=== PATIENT | female | born 1935 | race Caucasian/White ===

== ENCOUNTER 2016-03-05 08:09 | Day surgery (SDC) | END 2016-03-05 08:10 | disposition home or self-care (01) | CPT/HCPCS: 66984; A9270; V2632 ==

== ENCOUNTER 2017-05-26 08:00 | Outpatient (CLI) | payer MEDICARE ==
[2017-05-26 12:26] LABS: BASOPHILS # (AUTO) 0.1 10^3/uL (0.0-0.1); EOSINOPHILS # (AUTO) 0.2 10^3/uL (0.0-0.7); EOSINOPHILS % (AUTO) 2.9 %; HGB - HEMOGLOBIN 14.2 g/dL (12.0-16.0); LYMPHOCYTES # (AUTO) 1.6 10^3/uL (1.5-3.5); LYMPHOCYTES % (AUTO) 26.2 %; MEAN CORPUSCULAR HEMOGLOBIN 30.9 pg (27.0-31.0); MEAN CORPUSCULAR HGB CONC 34.3 g/dL (32.0-36.0); MEAN CORPUSCULAR VOLUME 90.3 fL (81.0-99.0); MEAN PLATELET VOLUME 9.9 fL (7.9-10.8); MONOCYTES # (AUTO) 0.4 10^3/uL (0.0-1.0); NEUTROPHILS # (AUTO) 3.9 10^3/uL (1.5-6.6); NEUTROPHILS % (AUTO) 62.9 %; PLT - PLATELET COUNT 166 10^3/uL (130-450); RED CELL DISTRIBUTION WIDTH 13.5 % (12.0-15.0); TROPONIN I < 0.04 ng/mL (<0.49); WHITE BLOOD COUNT 6.3 x10^3/uL (4.8-10.8)
[2017-05-26 12:28] LABS: CREATINE KINASE MB 1.8 ng/mL (0.6-6.3)
[2017-05-26 12:41] LABS: ALBUMIN/GLOBULIN RATIO 1.5 (1.0-2.2); ALKALINE PHOSPHATASE 58 IU/L (42-121); ALT ALANINE AMINOTRANSFERASE 15 IU/L (10-60); AST ASPARTATE AMINOTRANSFERASE 20 IU/L (10-42); BILIRUBIN,TOTAL 0.8 mg/dL (0.2-1.0); BUN - BLOOD UREA NITROGEN 20 mg/dL (6-20); CALCIUM 9.1 mg/dL (8.5-10.3); CARBON DIOXIDE - CO2 26 mmol/L (21-32); CHLORIDE 107 mmol/L (101-111); CHOL/HDL RATIO 6.1 (<4.4); CHOLESTEROL 262 mg/dL; CREATININE 0.8 mg/dL (0.4-1.0); GFR - MDRD 69 (>89); GLUCOSE 80 mg/dL (70-100); HDL CHOLESTEROL 43 mg/dL; LDL CHOLESTEROL,CALCULATED 190 mg/dL; LDL/HDL RATIO 4.4 (<4.4); SODIUM 138 mmol/L (135-145); TOTAL PROTEIN 6.7 g/dL (6.7-8.2); VLDL CHOLESTEROL 29 mg/dL
== END 2017-05-26 08:01 | disposition home or self-care (01) ==
LOC: LAB.WCP 08:00
PROVIDERS: ATTEND Family Medicine
DX: R07.89 Other chest pain (principal)
CPT/HCPCS: 36415; 80053; 80061; 82553; 83721; 84443; 84484; 85025; 85379

== ENCOUNTER 2017-08-11 16:46 | Emergency (ER) | payer MEDICARE ==
--- NOTE | 2017-08-11 19:18 | ED Physician Documentation ---
PD HPI CHEST PAIN - Stated complaint Stated Complaint: HIGH BP/LT SIDE SHOULDER/ARM PX - Chief complaint Chief Complaint: Cardiac - History obtained from History obtained from: Patient, Family - History of Present Illness Timing - onset: Other (This is a ying 82-year-old woman with long-standing hypertension. She was on metoprolol 50 mg twice a day and on lisinopril 10 mg a day. Lisinopril was making her dizzy so it was stopped. She saw her physician a few days ago and losartan was added, 50 mg a day. For the last many months, as long as she remembers she has had constant, non-intermittent very mild left-sided chest pressure and some headaches. None of this is new or debilitating. She took her blood pressure today and it was in the range of 200/ 90 so she presents for treatment mainly for the elevated blood pressure readings.) Review of Systems Constitutional: denies: Fever, Chills Cardiac: denies: Palpitations, Pedal edema, Calf pain Respiratory: denies: Dyspnea, Cough GI: denies: Abdominal Pain, Nausea, Vomiting PD PAST MEDICAL HISTORY - Past Medical History Cardiovascular: Hypertension, High cholesterol, Other Respiratory: Other GI: None : None HEENT: None Psych: Depression Musculoskeletal: Osteoporosis, Chronic back pain Derm: None - Past Surgical History Past Surgical History: Yes General: Other Ortho: Hip replacement, 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 - Present Medications Home Medications: Ambulatory Orders Medication Instructions Recorded Confirmed Lisinopril 1 tab PO DAILY 03/21/15 03/05/16 Metoprolol Tartrate 1 tab PO BID 03/21/15 03/05/16 Aspirin [Lo-Dose Aspirin EC] 81 mg PO DAILY 03/05/16 03/05/16 Cholecalciferol (Vitamin D3) 400 units PO DAILY 03/05/16 03/05/16 [Vitamin D3] - Allergies Allergies/Adverse Reactions: Allergies Allergy/AdvReac Type Severity Reaction Status Date / Time No Known Drug Allergies Allergy Verified 03/21/15 10:21 - Social History Does the pt smoke?: Yes Smoking Status: Current every day smoker Does the pt drink ETOH?: No Does the pt have substance abuse?: No - Immunizations Immunizations are current?: Yes PD ED PE NORMAL - Vitals Vital signs reviewed: Yes - General General: Alert and oriented X 3, No acute distress - HEENT HEENT: PERRL, EOMI - Neck Neck: Supple, no meningeal sign, No bony TTP - Cardiac Cardiac: RRR, No murmur - Respiratory Respiratory: No respiratory distress, Clear bilaterally - Abdomen Abdomen: Normal bowel sounds, Soft, Non tender - Back Back: No CVA TTP, No spinal TTP - Extremities Extremities: No edema, No calf tenderness / cord - Neuro Neuro: Alert and oriented X 3, Normal speech Results - Vitals Vitals: Vital Signs - 24 hr 08/11/17 08/11/17 17:08 19:01 Temperature 37.0 C Heart Rate 73 Respiratory 16 Rate Blood Pressure 200/89 H Blood Pressure 200/79 H [Right] O2 Saturation 99 Oxygen O2 Source Room air - EKG (time done) 1719 Rate: Rate (enter#) (71) Rhythm: NSR [place]: Normal Intervals: Normal [place] QRS: Normal Ischemia: Normal ST segments Computer interpretation: Agree with computer - Labs Labs: Laboratory Tests 08/11/17 08/11/17 08/11/17 19:26 19:26 19:26 WBC 4.2 L RBC 4.65 Hgb 14.5 Hct 43.1 MCV 92.5 MCH 31.2 H MCHC 33.7 RDW 13.7 Plt Count 145 MPV 9.0 Neut # (Auto) 2.6 Lymph # (Auto) 1.0 L [place] # (Auto) 0.4 Eos # (Auto) 0.1 Baso # (Auto) 0.0 Absolute Nucleated RBC 0.00 Nucleated RBC % 0.0 Sodium 136 Potassium 3.3 L Chloride 105 Carbon Dioxide 24 Anion Gap 7.0 BUN 17 Creatinine 0.8 Estimated GFR (MDRD) 69 L Glucose 129 H Calcium 9.1 Total Bilirubin 0.9 AST 23 ALT 14 Alkaline Phosphatase 72 Troponin I < 0.04 Total Protein 7.1 Albumin 4.1 Globulin 3.0 Albumin/Globulin Ratio 1.4 Lipase 38 PD MEDICAL DECISION MAKING - ED course ED course: 82-year-old woman with hypertension, uncontrolled on her current regimen. We will increase her losartan to double the amount she is on now. She has long- standing chest pain which is not acute. It has been going on "forever" without change and constantly so I do not think further workup at this juncture is necessary. - Sepsis Event Vital Signs: Vital Signs - 24 hr 08/11/17 08/11/17 17:08 19:01 Temperature 37.0 C Heart Rate 73 Respiratory 16 Rate Blood Pressure 200/89 H Blood Pressure 200/79 H [Right] O2 Saturation 99 Oxygen O2 Source Room air Departure - Departure Disposition: 01 Home, Self Care Clinical Impression: Hypertension Qualifiers: Hypertension type: essential hypertension Qualified Code(s): I10 - Essential ( primary) hypertension Condition: Good Record reviewed to determine appropriate education?: Yes Instructions: Blood Pressure Dc Comments: Increase the losartan, the little green pill, to 50 mg twice a day and follow up with Dr. Bueno within the next few days.
[2017-08-11 19:33] LABS: EOSINOPHILS # (AUTO) 0.1 10^3/uL (0.0-0.7); EOSINOPHILS % (AUTO) 1.3 %; HGB - HEMOGLOBIN 14.5 g/dL (12.0-16.0); LYMPHOCYTES % (AUTO) 25.1 %; MEAN CORPUSCULAR HEMOGLOBIN 31.2 pg (27.0-31.0); MEAN CORPUSCULAR HGB CONC 33.7 g/dL (32.0-36.0); MEAN CORPUSCULAR VOLUME 92.5 fL (81.0-99.0); MONOCYTES # (AUTO) 0.4 10^3/uL (0.0-1.0); MONOCYTES % (AUTO) 9.8 %; NEUTROPHILS # (AUTO) 2.6 10^3/uL (1.5-6.6); NEUTROPHILS % (AUTO) 62.8 %; PLT - PLATELET COUNT 145 10^3/uL (130-450); RED BLOOD COUNT 4.65 10^6/uL (4.20-5.40); RED CELL DISTRIBUTION WIDTH 13.7 % (12.0-15.0); WHITE BLOOD COUNT 4.2 x10^3/uL (4.8-10.8)
[2017-08-11 19:45] LABS: ALBUMIN 4.1 g/dL (3.2-5.5); ALBUMIN/GLOBULIN RATIO 1.4 (1.0-2.2); BILIRUBIN,TOTAL 0.9 mg/dL (0.2-1.0); CALCIUM 9.1 mg/dL (8.5-10.3); CREATININE 0.8 mg/dL (0.4-1.0); TOTAL PROTEIN 7.1 g/dL (6.7-8.2)
[2017-08-11 20:26] VITALS: BP 176/98
== END 2017-08-11 20:27 | disposition home or self-care (01) ==
LOC: ED 16:46
DX: I10 Essential (primary) hypertension (principal); E78.00 Pure hypercholesterolemia, unspecified; M81.0 Age-related osteoporosis without current pathological fracture; Z79.82 Long term (current) use of aspirin; F17.200 Nicotine dependence, unspecified, uncomplicated
CPT/HCPCS: 36415; 80053; 83690; 84484; 85025; 93005; 99283

== ENCOUNTER 2017-12-10 08:00 | Outpatient (CLI) | payer MEDICARE ==
[2017-12-10 14:49] LABS: BASOPHILS % (AUTO) 0.8 %; BILIRUBIN,URINE NEGATIVE (NEGATIVE); EOSINOPHILS # (AUTO) 0.1 10^3/uL (0.0-0.7); EOSINOPHILS % (AUTO) 2.5 %; GLUCOSE, URINE (UA) NEGATIVE (NEGATIVE); HGB - HEMOGLOBIN 14.8 g/dL (12.0-16.0); KETONES,URINE (UA) NEGATIVE (NEGATIVE); LEUKOCYTE ESTERASE, URINE NEGATIVE (NEGATIVE); LYMPHOCYTES # (AUTO) 1.8 10^3/uL (1.5-3.5); LYMPHOCYTES % (AUTO) 31.5 %; MEAN CORPUSCULAR HEMOGLOBIN 31.5 pg (27.0-31.0); MEAN CORPUSCULAR HGB CONC 34.7 g/dL (32.0-36.0); MEAN CORPUSCULAR VOLUME 90.7 fL (81.0-99.0); MEAN PLATELET VOLUME 10.3 fL (7.9-10.8); MONOCYTES # (AUTO) 0.5 10^3/uL (0.0-1.0); MONOCYTES % (AUTO) 8.2 %; NEUTROPHILS # (AUTO) 3.2 10^3/uL (1.5-6.6); NITRITE,URINE NEGATIVE (NEGATIVE); OCCULT BLOOD,URINE NEGATIVE (NEGATIVE); PLT - PLATELET COUNT 178 10^3/uL (130-450); PROTEIN,URINE NEGATIVE (NEGATIVE); RED BLOOD COUNT 4.71 10^6/uL (4.20-5.40); RED CELL DISTRIBUTION WIDTH 13.9 % (12.0-15.0); UROBILINOGEN,URINE 0.2 (NORMAL) E.U./dL (NORMAL); WHITE BLOOD COUNT 5.7 x10^3/uL (4.8-10.8)
[2017-12-10 15:38] LABS: BACTERIA,URINE None Seen /HPF (None Seen); CLARITY,URINE CLEAR (CLEAR); RBC,URINE None Seen /HPF (0-5); SQUAMOUS EPITHELIAL CELL,UR NONE SEEN (<= Few)
[2017-12-10 16:00] LABS: ALBUMIN 4.3 g/dL (3.2-5.5); ALBUMIN/GLOBULIN RATIO 1.5 (1.0-2.2); ALKALINE PHOSPHATASE 71 IU/L (42-121); ALT ALANINE AMINOTRANSFERASE 18 IU/L (10-60); AST ASPARTATE AMINOTRANSFERASE 23 IU/L (10-42); BILIRUBIN,TOTAL 0.7 mg/dL (0.2-1.0); BUN - BLOOD UREA NITROGEN 16 mg/dL (6-20); CALCIUM 9.6 mg/dL (8.5-10.3); CARBON DIOXIDE - CO2 28 mmol/L (21-32); CHLORIDE 106 mmol/L (101-111); CHOL/HDL RATIO 6.4 (<4.4); CHOLESTEROL 302 mg/dL; CREATININE 0.8 mg/dL (0.4-1.0); GFR - MDRD 69 (>89); GLUCOSE 85 mg/dL (70-100); HDL CHOLESTEROL 47 mg/dL; LDL CHOLESTEROL,CALCULATED 211 mg/dL; LDL/HDL RATIO 4.5 (<4.4); SODIUM 140 mmol/L (135-145); TOTAL PROTEIN 7.1 g/dL (6.7-8.2); VLDL CHOLESTEROL 44 mg/dL
[2017-12-10 16:19] LABS: HB2 TOTAL 15.8 g/dL; HEMOGLOBIN A1C 0.52 g/dL; HEMOGLOBIN A1C % 5.2 % (4.6-6.2)
== END 2017-12-10 08:01 | disposition home or self-care (01) ==
LOC: LAB.WCP 08:00
PROVIDERS: ATTEND Family Medicine
DX: I10 Essential (primary) hypertension (principal); E78.5 Hyperlipidemia, unspecified; R31.9 Hematuria, unspecified; R73.01 Impaired fasting glucose
CPT/HCPCS: 36415; 80053; 80061; 81001; 83036; 83721; 84443; 85025

== ENCOUNTER 2018-05-04 09:22 | Outpatient (CLI) | payer MEDICARE ==
[2018-05-04 13:40] LABS: CALCIUM 9.9 mg/dL (8.5-10.3); CREATININE 1.1 mg/dL (0.4-1.0)
== END 2018-05-04 23:59 | disposition home or self-care (01) ==
LOC: LAB.WCP 09:22
PROVIDERS: ATTEND Family Medicine
DX: I10 Essential (primary) hypertension (principal)
CPT/HCPCS: 36415; 80048

== ENCOUNTER 2018-07-28 07:39 | Day surgery (SDC) | payer MEDICARE ==
[~2018-07-28 07:39] MED LIST: BRIMONIDINE 0.2% OPHTH DROPS 5 ML ONE; BSS/LIDOCAINE/EPINEPHRINE 1 ML SYRINGE ONE; CYCLOPENTOLATE 1% OPHTH DROPS 2 ML ONE; KETOROLAC 0.45% OPHTH DROPS ONE; PHENYLEPHRINE 2.5% OPHTH 2 ML DROPS ONE; PROPARACAINE 0.5% OPHTH DROPS 15 ML ONE; TIMOLOL 0.5% OPHTH DROPS ONE; TRIAMCIN/MOXIFLOX OPHTHALMIC 0.6 ML VIAL IO ONE; VANCOMYCIN OPHTHALMI 8MG/0.8ML 8 MG/0.8 ML SYRINGE IO ONE
[2018-07-28] MEDS ORDERED: LACTATED RINGERS 500 ML IV ONE (07:58)
[2018-07-28] MEDS ORDERED: PROPARACAINE 0.5% OPHTH DROPS 15 ML LEFTEYE ONE ×2 (08:05→09:11)
[2018-07-28] MEDS ORDERED: CYCLOPENTOLATE 1% OPHTH DROPS 2 ML LEFTEYE ONE (08:05)
[2018-07-28] MEDS ORDERED: KETOROLAC 0.45% OPHTH DROPS LEFTEYE ONE (08:05)
[2018-07-28] MEDS ORDERED: PHENYLEPHRINE 2.5% OPHTH 2 ML DROPS LEFTEYE ONE (08:05)
--- NOTE | 2018-07-28 08:37 | ANESTHESIA ---
Pre-Anesthesia VS, & Labs - Diagnosis left senile combined cataract - Procedure left cataract extraction with intraocular lens Vital Signs: Temp Pulse Resp BP Pulse Ox 36.7 C 61 18 149/81 H 97 07/28/18 08:06 07/28/18 08:06 07/28/18 08:06 07/28/18 08:06 07/28/18 08:06 Height 5 ft 4 in Weight (kg) 56 kg Body Mass Index 20.5 - NPO >8 hours - Is Patient ?: Not Applicable Home Medications and Allergies Lisinopril 1 tab PO DAILY 03/21/15 Metoprolol Tartrate 1 tab PO BID 03/21/15 Aspirin [Lo-Dose Aspirin EC] 81 mg PO DAILY 03/05/16 Cholecalciferol (Vitamin D3) [Vitamin D3] 400 units PO DAILY 03/05/16 Allergies/Adverse Reactions: Allergies Allergy/AdvReac Type Severity Reaction Status Date / Time No Known Drug Allergies Allergy Verified 03/21/15 10:21 Anes History & Medical History - Anesthetic History Anesthesia Complications: reports: No previous complications - Medical History Cardiovascular: reports: Hypertension, High cholesterol, Other Pulmonary: reports: Other Gastrointestinal: reports: None Urinary: reports: None Musculoskeletal: reports: Osteoporosis, Chronic back pain Skin: reports: None Smoking Status: Current every day smoker - Surgical History General: Other Gynecologic: Hysterectomy Orthopedic: Hip replacement, Other Exam General: Alert Dental: WNL Mouth Opening: Greater than 4 Fingerbreadths Mallampati classification: I Thyromental Distance: greater than 6 cm Respiratory: Lungs clear Cardiovascular: Regular rate, Normal S1, Normal S2 Mental/Cognitive Status: Alert/Oriented X3 Plan Anesthesia Type: MAC Consent for Procedure(s) Verified and Reviewed: Yes Code Status: Attempt Resuscitation ASA classification: 2-Mild systemic disease Is this case an emergency?: No
[2018-07-28] MEDS ORDERED: EPINEPHrine 1 MG/ML AMP IVP ONE (09:09)
[2018-07-28] MEDS ORDERED: BRIMONIDINE 0.2% OPHTH DROPS 5 ML OPTH ONE (09:09)
[2018-07-28] MEDS ORDERED: TIMOLOL 0.5% OPHTH DROPS OPTH ONE (09:09)
[2018-07-28] MEDS ORDERED: MIDAZOLAM 2 MG/2 ML VIAL IVP ONE (09:09)
[2018-07-28] MEDS ORDERED: fentaNYL 100 MCG/2 ML VIAL IVP ONE (09:09)
[2018-07-28] MEDS ORDERED: CHONDR SULF/HYALURONATE SYRINGE IO ONE (09:09)
[2018-07-28] MEDS ORDERED: TRIAMCIN/MOXIFLOX OPHTHALMIC 0.6 ML VIAL IO ONE (09:11)
[2018-07-28] MEDS ORDERED: BSS/LIDOCAINE/EPINEPHRINE 1 ML SYRINGE IO ONE (09:11)
[2018-07-28] MEDS ORDERED: VANCOMYCIN OPHTHALMI 8MG/0.8ML 8 MG/0.8 ML SYRINGE IO ONE (09:11)
[2018-07-28 09:41] VITALS: BP 119/67
--- NOTE | 2018-07-28 10:13 | OPERATIVE REPORT ---
DATE OF SERVICE: 07/28/2018 Physician: Gallo Martino MD PREOPERATIVE DIAGNOSIS: Visually significant cataract, left eye. Cataract surgery was performed on the right eye on 03/05/2016. POSTOPERATIVE DIAGNOSIS: Visually significant cataract, left eye. Cataract surgery was performed on the right eye on 03/05/2016. PROCEDURE: Phacoemulsification with posterior chamber intraocular lens implant, left eye. SURGEON: Gallo Martino MD ANESTHESIA: Monitored anesthesia care. COMPLICATIONS: None. OPERATIVE INDICATIONS: This is an 83-year-old woman with progressive vision loss in the left eye due to 2+ nuclear sclerotic and vacuole cataract. Best corrected visual acuity was 20/60 with glare to 20/630. Indications for surgery were difficulty driving in low light or night, difficulty driving at night because headlights from other vehicles, and difficulty with glare or bright lights in any situation. She was consented at length concerning risks and benefits of cataract surgery, after which she expressed a desire to proceed with surgery. OPERATIVE PROCEDURE: Patient was taken to OR #3 and placed under monitored anesthesia care. A surgical timeout was conducted confirming correct patient, correct procedure, and correct surgical site. She was given topical anesthesia, and then prepped and draped in the usual sterile fashion. The eye was entered at the 6 and 3 o'clock positions. Intracameral Shugarcaine was injected into the anterior chamber, followed by Viscoat. A continuous-tear curvilinear capsulorrhexis was performed. The nucleus was hydrodissected and phacoemulsified. The cortex was evacuated using automated infusion and aspiration. Provisc was injected into the capsular bag, and a 20.0 diopter intraocular lens inserted in the bag. Approximately 0.9 mL of a mixture of triamcinolone, moxifloxacin, and vancomycin was injected subconjunctivally in the superior quadrant for infection and inflammation prophylaxis. I and A was used to evacuate the viscoelastic material. The eye was inflated to physiologic pressure using balanced salt solution and found to be watertight. Patient was taken from the operating room in good condition and given postoperative instructions. TD: 07/28/2018 09:32 [facility]
== END 2018-07-28 07:40 | disposition home or self-care (01) ==
LOC: SDS 07:39
PROVIDERS: ATTEND Ophthalmology
PROC: 08RK3JZ Replacement of Left Lens with Synthetic Substitute, Percutaneous Approach (ICD-10-PCS; principal; 2018-07-28 09:00)
DX: H25.812 Combined forms of age-related cataract, left eye (principal); H35.3130 Nonexudative age-related macular degeneration, bilateral, stage unspecified; I10 Essential (primary) hypertension; F17.210 Nicotine dependence, cigarettes, uncomplicated
CPT/HCPCS: 66984; A9270; J3490; V2632

== ENCOUNTER 2018-12-09 11:09 | Emergency (ER) | payer MEDICARE ==
--- NOTE | 2018-12-09 11:56 | XRAY Report ---
Reason: chest pain, soa Procedure Date: 12/09/2018 Accession Number: [id number] / [id number] Procedure: XR - Chest 1 View X-Ray CPT Code: 09283 FULL RESULT: EXAM: CHEST RADIOGRAPHY EXAM DATE: 12/09/2018 11:26 AM. CLINICAL HISTORY: Chest pain, shortness of breath. COMPARISON: CHEST 2 VIEW PA/LAT 08/16/2017 9:10 AM CHEST 2 VIEW PA/LAT 05/26/2017 8:29 AM. TECHNIQUE: 1 view. FINDINGS: Lungs/Pleura: No focal opacities evident. No pleural effusion. No pneumothorax. Lungs appear mildly hyperexpanded, similar to prior Mediastinum: Within exam limitations, the cardiomediastinal contour is normal. There is moderate atherosclerotic calcification of the aortic arch. Other: No acute osseous abnormality. There is an old healed right lateral rib fracture deformity, as seen on prior exams. IMPRESSION: 1. No acute cardiopulmonary abnormality. 2. Lungs appear hyperexpanded, similar to the prior exam, raising the possibility of COPD/emphysema. RADIA
--- NOTE | 2018-12-09 12:30 | ED Physician Documentation ---
History of Present Illness - Stated complaint Stated Complaint: cp - Chief complaint Chief Complaint: Cardiac - History obtained from History obtained from: Patient, Family - History of Present Illness Pain level max: 3 Pain level now: 0 - Additonal information Additional information: 83-year-old female presents to the emergency department stating that she developed chest pain on walking. She states that she will feel the chest pain began when she walks from her home to her mailbox. She has to stop and take a break. This is been steadily worsening over the past 3 months. She states that it radiates to the left arm. No history of cardiac disease other than she states she had "fibrillation in the past". She states that she has not had this recur since she started taking a baby aspirin daily. Has not seen a roughener before. She does not believe that she has had a cardiac stress test in the past. She states that it does not occur at rest. She does have a history of smoking, but stopped 20 to 30 years ago. Does not use nebulizers. Brought in by family today. Worse with exertion, better with rest Review of Systems Ten Systems: 10 systems reviewed and negative Constitutional: denies: Fever, Chills Ears: denies: Ear pain Nose: denies: Rhinorrhea / runny nose, Congestion Throat: denies: Sore throat Cardiac: reports: Chest pain / pressure. denies: Palpitations, Pedal edema Respiratory: reports: Dyspnea (occasional). 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 - Present Medications Home Medications: Ambulatory Orders Medication Instructions Recorded Confirmed Lisinopril 0.5 tab PO PRN PRN 03/21/15 12/09/18 Metoprolol Tartrate 100 mg PO BID 03/21/15 12/09/18 Aspirin [Lo-Dose Aspirin EC] 81 mg PO DAILY 03/05/16 12/09/18 Cholecalciferol (Vitamin D3) 400 units PO DAILY 03/05/16 12/09/18 [Vitamin D3] Losartan [Cozaar] 100 mg PO BID 12/09/18 12/09/18 Ubidecarenone [Co Q-10] 100 mg PO DAILY 12/09/18 12/09/18 Vit A/Vit C/Vit E/Zinc/Copper 2 cap PO DAILY 12/09/18 12/09/18 [Preservision Areds Softgel] - Allergies Allergies/Adverse Reactions: Allergies Allergy/AdvReac Type Severity Reaction Status Date / Time amoxicillin Allergy Unknown Verified 12/09/18 11:18 - Social History Does the pt smoke?: Yes Smoking Status: Current every day smoker Does the pt drink ETOH?: No Does the pt have substance abuse?: No - Immunizations Immunizations are current?: Yes PD ED PE NORMAL - Vitals Vital signs reviewed: Yes - General General: Alert and oriented X 3, No acute distress, Well developed/nourished - HEENT HEENT: PERRL, Moist mucous membranes - Neck Neck: Supple, no meningeal sign - Cardiac Cardiac: RRR, Strong equal pulses - Respiratory Respiratory: No respiratory distress, Other (Mild wheeze bilaterally) - Abdomen Abdomen: Soft, Non tender, Non distended - Derm Derm: Warm and dry - Extremities Extremities: No edema, No calf tenderness / cord - Neuro Neuro: Alert and oriented X 3 - Psych Psych: Normal mood, Normal affect Results - Vitals Vitals: Vital Signs - 24 hr 12/09/18 12/09/18 12/09/18 11:10 11:57 12:58 Temperature 36.7 C Heart Rate 61 57 L 54 L Respiratory 18 16 18 Rate Blood Pressure 191/104 H 170/76 H O2 Saturation 95 99 12/09/18 12/09/18 13:17 14:54 Temperature Heart Rate 78 67 Respiratory 18 17 Rate Blood Pressure 158/96 H 150/68 H O2 Saturation 99 99 Oxygen O2 Source Room air - EKG (time done) 1116 Rate: Rate (enter#) (61) Rhythm: NSR [place]: Normal Intervals: Normal [place] QRS: Normal Ischemia: Normal ST segments - Labs Labs: Laboratory Tests 12/09/18 12/09/18 12/09/18 11:57 11:57 11:57 WBC 6.4 RBC 4.49 Hgb 13.8 Hct 42.8 MCV 95.3 MCH 30.7 MCHC 32.2 RDW 13.0 Plt Count 196 MPV 11.9 H Neut # (Auto) 4.0 Lymph # (Auto) 1.6 [place] # (Auto) 0.5 Eos # (Auto) 0.2 Baso # (Auto) 0.1 Absolute Nucleated RBC 0.00 Nucleated RBC % 0.0 Sodium 141 Potassium 4.2 Chloride 106 Carbon Dioxide 25 Anion Gap 10.0 BUN 22 H Creatinine 0.8 Estimated GFR (MDRD) 68 L Glucose 90 Calcium 9.5 Total Bilirubin 0.6 AST 23 ALT 18 Alkaline Phosphatase 61 Troponin I High Sens 16.6 H* Total Protein 6.8 Albumin 4.0 Globulin 2.8 Albumin/Globulin Ratio 1.4 Lipase 52 H - Rads (name of study) cxr Radiology: Prelim report reviewed, EMP read contemporaneously, See rad report (No acute cardiopulmonary abnormality. 2. Lungs appear hyperexpanded, similar to the prior exam, raising the possibility of COPD/emphysema. ) PD MEDICAL DECISION MAKING - ED course Complexity details: reviewed results, re-evaluated patient, considered differential, d/w patient, d/w family, d/w toy consultant ED course: 83-year-old female presents to the emergency department what sounds like accelerating angina. She was also given a nebulizer treatment as her chest x- ray raises the question of COPD/emphysema. She was given aspirin here as well. Discussed the case with Dr. Baez, [facility] cardiology in [place], who graciously accepts in transfer at 1340. Patient was started on a heparin drip. She is pain-free. We will transfer her for further care.COBRA forms completed This document was made in part using voice recognition software. While efforts are made to proofread this document, sound alike and grammatical errors may occur. Departure - Departure Disposition: 02 Transfer Acute Care Hosp Clinical Impression: Angina pectoris Condition: Stable
[2018-12-09] MEDS ORDERED: ASPIRIN CHEW 81 MG TABLET PO STA (12:41)
[2018-12-09] MEDS ORDERED: ALBUTEROL NEB 2.5 MG/3 ML INH STA (12:41)
[2018-12-09 12:46] LABS: BASOPHILS # (AUTO) 0.1 10^3/uL (0.0-0.1); BASOPHILS % (AUTO) 1.1 %; EOSINOPHILS # (AUTO) 0.2 10^3/uL (0.0-0.7); EOSINOPHILS % (AUTO) 2.4 %; HGB - HEMOGLOBIN 13.8 g/dL (12.0-16.0); LYMPHOCYTES # (AUTO) 1.6 10^3/uL (1.5-3.5); LYMPHOCYTES % (AUTO) 25.5 %; MEAN CORPUSCULAR HEMOGLOBIN 30.7 pg (27.0-31.0); MEAN CORPUSCULAR HGB CONC 32.2 g/dL (32.0-36.0); MEAN CORPUSCULAR VOLUME 95.3 fL (81.0-99.0); MEAN PLATELET VOLUME 11.9 fL (7.9-10.8); MONOCYTES # (AUTO) 0.5 10^3/uL (0.0-1.0); MONOCYTES % (AUTO) 8.2 %; NEUTROPHILS % (AUTO) 62.3 %; PLT - PLATELET COUNT 196 10^3/uL (130-450); RED BLOOD COUNT 4.49 10^6/uL (4.20-5.40); WHITE BLOOD COUNT 6.4 x10^3/uL (4.8-10.8)
[2018-12-09 12:49] LABS: ALBUMIN/GLOBULIN RATIO 1.4 (1.0-2.2); BILIRUBIN,TOTAL 0.6 mg/dL (0.2-1.0); CALCIUM 9.5 mg/dL (8.5-10.3); CREATININE 0.8 mg/dL (0.4-1.0); TOTAL PROTEIN 6.8 g/dL (6.7-8.2)
[2018-12-09] MEDS ORDERED: HEPARIN 25000UNITS/500ML (D5W) 25,000 UNIT/500 ML BAG IV STA (13:41)
[2018-12-09] MEDS ORDERED: HEPARIN 5,000 UNIT/ML VIAL IVP STA (13:41)
[2018-12-09 16:17] VITALS: BP 141/87
== END 2018-12-09 16:24 | disposition short-term general hospital (02) ==
LOC: ED 11:09
DX: I20.9 Angina pectoris, unspecified (principal); I10 Essential (primary) hypertension; R06.09 Other forms of dyspnea; Z87.891 Personal history of nicotine dependence; Z79.82 Long term (current) use of aspirin
CPT/HCPCS: 36415; 71045; 80053; 83690; 84484; 85025; 93005; 94640; 99284; 99285; A9270

== ENCOUNTER 2019-06-16 09:31 | Outpatient (CLI) | payer MEDICARE ==
--- NOTE | 2019-06-17 13:39 | Ultrasound Report ---
Reason: PERIPHERAL ARTERY DISEASE Procedure Date: 06/16/2019 Accession Number: [id number] / [id number] Procedure: US - Duplex Lwr Ext Arterial Bilat CPT Code: Final Report FULL RESULT: EXAM: BILATERAL LOWER EXTREMITY ARTERIAL DOPPLER ULTRASOUND EXAM DATE: 06/16/2019 11:30 AM. CLINICAL HISTORY: Peripheral artery disease. History of hypertension, on medication. Remote smoking, quit 35 years ago. History of coronary arterial stent. Right greater than left lower extremity claudication per patient for multiple months. COMPARISON: None. TECHNIQUE: Real-time sonographic vascular imaging was performed by the senior product consultant, utilizing color-flow, Doppler flow, and spectral analysis. Multiple sales representative door to door static images were saved for review. FINDINGS: Right Lower Extremity: ACCOUNT GROUP SUPERVISOR: PSV 93.7 cm/sec. Triphasic waveform. Prox SFA: PSV 82.0 cm/sec. Biphasic waveform. Mid SFA: PSV 82.6 cm/sec. Triphasic waveform. Dist SFA: PSV 55.5 cm/sec. Biphasic waveform. PFA: PSV 33.6 cm/sec. Biphasic waveform. Popliteal: PSV 49.8 cm/sec. Biphasic waveform. ABBI: PSV 54.0 cm/sec. Biphasic waveform. GARDEN MACHINERY MECHANIC: PSV 39.6 cm/sec. Biphasic waveform. Peroneal: Not seen. Dorsalis: PSV 68.3 cm/sec. Biphasic waveform. Left Lower Extremity: ACCOUNT GROUP SUPERVISOR: PSV 61.5 cm/sec. Triphasic waveform. Prox SFA: PSV 75.2 cm/sec. Biphasic waveform. Mid SFA: PSV 67.2 cm/sec. Biphasic Waveform. Dist SFA: PSV 53.0 cm/sec. Biphasic waveform. PFA: PSV 47.0 cm/sec. Biphasic waveform. Popliteal: PSV 31.6 cm/sec. Biphasic waveform. ABBI: PSV 54.3 cm/sec. Biphasic waveform. GARDEN MACHINERY MECHANIC: PSV 35.6 cm/sec. Monophasic waveform. Peroneal: PSV 49.4 cm/sec. Biphasic waveform. Dorsalis: PSV 49.4 cm/sec. Biphasic waveform. Right peroneal artery was not identified. IMPRESSION: 1. No hemodynamically significant stenosis or convincing occlusion within right or left lower extremity arteries. RADIA
== END 2019-06-16 09:32 | disposition home or self-care (01) ==
LOC: DI 09:31
PROVIDERS: ATTEND Family Medicine
DX: I73.9 Peripheral vascular disease, unspecified (principal)
CPT/HCPCS: 93925

== ENCOUNTER 2020-12-17 08:55 | Outpatient (CLI) | payer MEDICARE ==
[2020-12-17 13:29] LABS: BASOPHILS # (AUTO) 0.1 10^3/uL (0.0-0.1); BASOPHILS % (AUTO) 1.1 %; EOSINOPHILS # (AUTO) 0.2 10^3/uL (0.0-0.7); EOSINOPHILS % (AUTO) 3.1 %; HCT - HEMATOCRIT 47.2 % (37.0-47.0); HGB - HEMOGLOBIN 14.8 g/dL (12.0-16.0); LYMPHOCYTES # (AUTO) 1.6 10^3/uL (1.5-3.5); LYMPHOCYTES % (AUTO) 29.5 %; MEAN CORPUSCULAR HEMOGLOBIN 30.5 pg (27.0-31.0); MEAN CORPUSCULAR HGB CONC 31.4 g/dL (32.0-36.0); MEAN CORPUSCULAR VOLUME 97.1 fL (81.0-99.0); MEAN PLATELET VOLUME 11.6 fL (7.9-10.8); MONOCYTES # (AUTO) 0.5 10^3/uL (0.0-1.0); MONOCYTES % (AUTO) 8.5 %; NEUTROPHILS # (AUTO) 3.2 10^3/uL (1.5-6.6); NEUTROPHILS % (AUTO) 57.4 %; PLT - PLATELET COUNT 196 10^3/uL (130-450); RED BLOOD COUNT 4.86 10^6/uL (4.20-5.40); RED CELL DISTRIBUTION WIDTH 13.3 % (12.0-15.0); WHITE BLOOD COUNT 5.5 x10^3/uL (4.8-10.8)
[2020-12-17 13:48] LABS: ALBUMIN 4.2 g/dL (3.2-5.5); ALBUMIN/GLOBULIN RATIO 1.4 (1.0-2.2); BILIRUBIN,TOTAL 0.7 mg/dL (0.2-1.0); CALCIUM 9.6 mg/dL (8.5-10.3); CREATININE 0.8 mg/dL (0.4-1.0); POTASSIUM 4.2 mmol/L (3.5-5.0); TOTAL PROTEIN 7.1 g/dL (6.7-8.2)
[2020-12-17 14:05] LABS: THYROID STIMULATING HORMONE 3.68 uIU/mL (0.34-5.60)
[2020-12-17 14:06] LABS: FREE T3 2.67 pg/mL (2.5-3.9)
[2020-12-17 14:07] LABS: FREE T4 (FREE THYROXINE) 0.88 ng/dL (0.58-1.64)
== END 2020-12-17 08:56 | disposition home or self-care (01) ==
LOC: LAB.N 08:55
PROVIDERS: ATTEND Family Medicine
DX: R06.09 Other forms of dyspnea (principal); I25.10 Atherosclerotic heart disease of native coronary artery without angina pectoris
CPT/HCPCS: 36415; 80053; 83880; 84439; 84443; 84481; 85025

== ENCOUNTER 2020-12-17 09:00 | Outpatient (CLI) | payer MEDICARE ==
--- NOTE | 2020-12-17 10:36 | XRAY Report ---
PROCEDURE: Chest 2 View X-Ray INDICATIONS: EXERTIONAL DYSPNEA TECHNIQUE: 2 view(s) of the chest. COMPARISON: August 16, 2017. FINDINGS: SUPPORT DEVICES: None. LUNG/PLEURA: Biapical pleural thickening/scarring with coarsened interstitial markings. No focal cons olidation or pulmonary edema. No pleural effusion or space-occupying pneumothorax. MEDIASTINUM: The cardiomediastinal silhouette is within normal limits. Calcified atheromatous change of the aorta. BONES/SOFT TISSUES: No acute abnormality. Redemonstrated remote right rib fractures. IMPRESSION: 1.No acute cardiopulmonary abnormality. Reviewed by: Bennett Mcwilliams MD on 12/17/2020 10:34 AM PDT Approved by: Bennett Mcwilliams MD on 12/17/2020 10:34 AM PDT Station ID: [id number]
== END 2020-12-17 09:01 | disposition home or self-care (01) ==
LOC: DI.N 09:00
PROVIDERS: ATTEND Family Medicine
DX: R06.09 Other forms of dyspnea (principal); I25.10 Atherosclerotic heart disease of native coronary artery without angina pectoris
CPT/HCPCS: 36415; 80053; 83880; 84439; 84443; 84481; 85025

== ENCOUNTER 2020-12-19 09:07 | Outpatient (CLI) | payer MEDICARE | END 2020-12-19 09:08 | disposition home or self-care (01) | LOC: RT 09:07 | PROVIDERS: ATTEND Family Medicine | DX: R06.09 Other forms of dyspnea (principal); I25.10 Atherosclerotic heart disease of native coronary artery without angina pectoris | CPT/HCPCS: 94010 ==

== ENCOUNTER 2020-12-26 10:22 | Outpatient (CLI) | payer MEDICARE ==
--- NOTE | 2020-12-26 13:31 | CARDIAC PROCEDURE NOTE ---
Stress Test Report Service Date: 12/26/20 Service Time: 11:00 Ordering Provider: Popeye Franco MD Indication for Test: Assess for ischemic contribution to exertional dyspnea and chest discomfort in a patient with multiple stents 2 years ago. Significant Medical History: -Sharon underwent coronary stenting x4 (LAD x2, First diagonal x1 and mid RCA x1) in the setting of a nonST segment elevation myocardial infarction in November 2018. Preceding this event she had had progressive central and upper chest discomfort with exertion and after the procedure she was able to resume her prior (though somewhat limited) level of normal activities without chest discomfort or significant shortness of breath. -She was seen for a follow-up visit in mid November of this year by Dr. Franco, at which time she described several weeks of new symptoms, primarily progressively worsening dyspnea with exertion, with only a slight amount of associated upper chest pressure during these episodes. She denied having had a recent increase in orthopnea, PND or extremity swelling. Her exertional tolerance is also affected by having had bilateral hip fractures and having chronic spinal disease. Cardiac Risk Factors: Sharon has a history of known CAD, with hypertension and positive family history of CAD in her father. She smoked one PPD but quit 37 years ago. She has no history of diabetes. Type of Stress Test: Pharmacologic Stress Test with MPI Pharmacologic Agent: Lexiscan Procedure: -Pharmacologic Stress Test- Today's test was initially planned as a treadmill (if possible) or dobutamine stress echocardiogram, however her sonographic image quality was poor, likely due to variant heart position/lie and limited acoustic windows. Therefore the t est was reordered as a walking Lexiscan stress myocardial perfusion imaging study. After signing informed consent, the patient resting SPECT imaging and she then underwent a walking (0.7 mph, flat) Lexiscan pharmacologic stress test; baseline values below are those obtained after 2 minutes of walking, at which time Lexiscan and 99Tc-Myoview were injected, with peak values obtained 2 minutes later. The test was terminated due to completing the protocol. Baseline walking heart rate: 114 Peak heart rate: 145 Normal HR response. Baseline walking BP: 185/91 Peak BP: 184/93 Hypertensive at baseline with normal BP response. Rhythm during testing: Sinus rhythm throughout. Symptoms: Patient developed her typical exertional shortness of breath with walking and then upper chest pressure. EKG at rest showed normal sinus tachycardia, with isoelectric ST segments. EKG after 2 minutes of walking (at time of Lexiscan injection) showed ST horizontal depression of 0.4-0.7 mm in the inferior and anterolateral leads. EKG at peak stress (2 minutes following Lexiscan injection) showed further ST depression (to 1.0-1.5 mm) likely meeting criteria for ischemia. In Recovery patient's heart rate and BP remained abnormally elevated through 11 minutes of observation; she was administered a 0.4 mg SL NTG tablet at 8 minutes of recovery with incremental reduction in her dyspnea and chest pressure over the next 5 minutes. Nuclear imaging was performed at rest and with stress. Image analysis revealed a small left ventricle with normal wall motion/ejection at rest and following pharmacologic stress. SPECT evaluation revealed a mild, reversible anteroseptal defect with stress. Differential explanation likely includes inducible ischemia versus variable breast attenuation (per radiologist). See separate report for more detail. IFlorentin MD, was present throughout this stress test and supervised it in its entirety. Summary: 1) Normal resting EKG. 2) Adequate stress was achieved. 3) Patient was hypertensive at resting baseline and remained stably elevated throughout; there was no significant change in BP response to pharmacologic agent. 4) Ischemic changes by EKG criteria were seen at peak stress. 5) Nuclear image interpretation reveals stress-associated anteroseptal defect, for which inducible ischemia is a likely explanation. 6) Review of limited transthoracic image data suggests mitral regurgitation of at least moderate degree, not appreciated by [facility] echocardiogram dated 12/26/14. A dedicated diagnostic echocardiogram is recommended to further assess the mechanism and severity of her MR. CONCLUSIONS: 1) Abnormal and high risk walking Lexiscan stress test results, with recreation of patient's symptoms and ST depression meeting criteria for ischemia at very low workload. 2) SPECT imaging results are consistent with inducible anteroseptal ischemia. 3) Symptom and EKG results were discussed on the day of the study with Dr Baez (covering for primary medical health researcher, Dr Nava) as well as patient's PCP, Dr Franco. 4) Augmentation of anti-ischemic therapy and review by medical health researcher for repeat cardiac catheterization are advised.
[2020-12-26] MEDS: REGADENOSON 0.4 MG/5 ML SYRINGE IVP ONE (14:07)
[2020-12-26] MEDS ORDERED: NITROGLYCERIN SL 0.4 MG TABLET SL ONE (14:20)
[2020-12-26] MEDS ORDERED: REGADENOSON 0.4 MG/5 ML SYRINGE IVP ONE (14:38)
--- NOTE | 2020-12-30 16:16 | Nuclear Medicine Report ---
PROCEDURE: Rest and exercise myocardial perfusion SPECT with gated imaging and ejection fraction INDICATIONS: EXERTIONAL DYSPNEA, CAD RADIOPHARMACEUTICAL: 11.6 mCi Tc-99m Myoview IV at rest and 30.5 mCi Tc-99m Myoview IV at peak exerc ise. [id number] was performed. TECHNIQUE: Radiopharmaceutical was injected at peak stress test, and also at rest. SPECT images wer e obtained. SPECT myocardial perfusion images were displayed in short axis, horizontal long axis, an d vertical long axis views. Gated images were reviewed using AutoQUANT software. COMPARISON: None available. FINDINGS: Raw data: There is good myocardial labeling by radiotracer. No significant motion artifacts. Lung- to-heart ratio is 0.28 (normal is less than 0.46 for tetrafosmin tracer). Left ventricle function: Gated images demonstrate normal left ventricle wall thickening. No segment al wall motion abnormality. No transient ischemic dilation; TID is 0.70 (normal less than 1.30). Th e left ventricle resting end-diastolic volume is 15 mL. Left ventricle stress ejection fraction is . 70%; normal values are above 45%. Myocardial perfusion: There is a moderate sized area of mild, reversible perfusion defect in the ant erior septum, most likely caused by breast attenuation and shifting breast artifacts. There is other gibbs normal distribution of activity in the left and right ventricular myocardium. IMPRESSION: 1. Probably normal myocardial perfusion images. There is a moderate sized area of mild, reversible pe rfusion defect in the anterior septum, most likely caused by breast attenuation and shifting breast a rtifacts. 2. Small and hyperdynamic left ventricle with normal left ventricular ejection fraction. 3. Please correlate with the stress EKG report. PQRS ATTESTATIONS: Measure 322 - Is this imaging test primarily performed on a low-risk surgery patient for preoperative evaluation within 30 days preceding their low-risk non-cardiac surgery? Low-risk surgery is defined as cardiac or myocardial infarction less than 1%, including (but not limited to) endoscopic pr ocedures, superficial procedures, cataract surgery, and excisional breast surgery: Answer: No Measure 323 - Is this imaging test performed primarily for the monitoring of an asymptomatic patient who had percutaneous coronary intervention on the visit date or within 2 years of the visit date? An swer: No Measure 324 - Is this imaging test performed primarily for the initial detection and risk assessment on an asymptomatic, low coronary heart disease patient? Low CHD risk definition = clinicians should consider the maximum number of available patient factors used to estimate risk based on [place] (A TP III criteria), typically age, gender, diabetes, smoking status, and use of blood pressure medicati on, and integrate age appropriate estimates for missing elements, such as LDL or standard blood press ure. Answer: No Reviewed by: Kei Hall MD on 12/30/2020 4:14 PM PDT Approved by: Kei Hall MD on 12/30/2020 4:14 PM PDT Station ID: [id number]
== END 2020-12-26 10:23 | disposition home or self-care (01) ==
LOC: DI 10:22
PROVIDERS: ATTEND Family Medicine
DX: R06.09 Other forms of dyspnea (principal); I25.10 Atherosclerotic heart disease of native coronary artery without angina pectoris; I25.2 Old myocardial infarction; Z95.5 Presence of coronary angioplasty implant and graft; I10 Essential (primary) hypertension; Z87.891 Personal history of nicotine dependence; I35.8 Other nonrheumatic aortic valve disorders
CPT/HCPCS: 78452; 93017; 93308; A9270; A9500; J2785

== ENCOUNTER 2021-09-24 08:00 | Outpatient (CLI) | payer MEDICARE ==
[2021-09-24 21:12] LABS: CALCIUM 9.6 mg/dL (8.5-10.3); CREATININE 0.9 mg/dL (0.4-1.0); POTASSIUM 3.9 mmol/L (3.5-5.0)
== END 2021-09-24 23:59 | disposition home or self-care (01) ==
LOC: LAB.N 08:00
PROVIDERS: ATTEND Physician Assistant Medical
DX: R60.0 Localized edema (principal)
CPT/HCPCS: 36415; 80048

== ENCOUNTER 2021-09-30 11:03 | Outpatient (CLI) | payer MEDICARE ==
[2021-09-30 18:25] LABS: CALCIUM 9.8 mg/dL (8.5-10.3); CREATININE 0.9 mg/dL (0.4-1.0); POTASSIUM 3.8 mmol/L (3.5-5.0)
== END 2021-09-30 11:04 | disposition home or self-care (01) ==
LOC: LAB.N 11:03
PROVIDERS: ATTEND Internal Medicine Cardiovascular Disease
DX: R06.02 Shortness of breath (principal)
CPT/HCPCS: 36415; 80048

== ENCOUNTER 2022-01-24 08:22 | Emergency (ER) | payer MEDICARE ==
--- NOTE | 2022-01-24 08:30 | ED Physician Documentation ---
PD HPI CHEST PAIN - Stated complaint Stated Complaint: CHEST PAIN - History obtained from History obtained from: Patient, EMS - History of Present Illness Timing - onset: Last night Timing - onset during: Sleep, Rest Timing - duration: Hours Timing - details: Gradual onset (had chest pressure/pain last night while in bed that lasted an hour or two then stopped. This morning feeling okay but noted her BP to be elevated at 200 systolic. Here for eval.), Waxing and waning Quality: Pressure, Tightness. No: Sharp, Tearing Location: Substernal Radiation: Back. No: Jaw, Neck Improved by: No: Rest Worsened by: No: Inspiration, Movement, Palpation Associated symptoms: No: Shortness of air, Nausea, Feeling faint / dizzy, Palpitations Similar symptoms before: Has not had sx before Recently seen: Not recently seen Review of Systems Constitutional: denies: Fever, Chills Nose: denies: Rhinorrhea / runny nose, Congestion Throat: denies: Sore throat Respiratory: denies: Cough Skin: denies: Rash Musculoskeletal: denies: Neck pain, Back pain PD PAST MEDICAL HISTORY - Past Medical History Cardiovascular: Hypertension, High cholesterol, Other Respiratory: Other GI: None : None HEENT: None Psych: Depression Musculoskeletal: Osteoporosis, Chronic back pain Derm: None - Past Surgical History Past Surgical History: Yes General: Other Ortho: Hip replacement, 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 - Present Medications Home Medications: Ambulatory Orders Medication Instructions Recorded Confirmed Metoprolol Tartrate 100 mg PO BID 03/21/15 12/09/18 lisinopriL [Lisinopril] 0.5 tab PO PRN PRN 03/21/15 12/09/18 Aspirin [Lo-Dose Aspirin EC] 81 mg PO DAILY 03/05/16 12/09/18 Cholecalciferol (Vitamin D3) 400 units PO DAILY 03/05/16 12/09/18 [Vitamin D3] Losartan [Cozaar] 100 mg PO BID 12/09/18 12/09/18 Ubidecarenone [Co Q-10] 100 mg PO DAILY 12/09/18 12/09/18 Vit A/Vit C/Vit E/Zinc/Copper 2 cap PO DAILY 12/09/18 12/09/18 [Preservision Areds Softgel] - Allergies Allergies/Adverse Reactions: Allergies Allergy/AdvReac Type Severity Reaction Status Date / Time amoxicillin Allergy Unknown Verified 12/09/18 11:18 - Social History Does the pt smoke?: Yes Smoking Status: Current every day smoker Does the pt drink ETOH?: No Does the pt have substance abuse?: No - Immunizations Immunizations are current?: Yes PD ED PE NORMAL - Vitals Vital signs reviewed: Yes - General General: Alert and oriented X 3, No acute distress, Well developed/nourished - HEENT HEENT: Pharynx benign - Neck Neck: Supple, no meningeal sign, No adenopathy - Cardiac Cardiac: RRR, No murmur - Respiratory Respiratory: Clear bilaterally - Abdomen Abdomen: Soft, Non tender - Derm Derm: Normal color, Warm and dry - Extremities Extremities: Normal ROM s pain, No edema, No calf tenderness / cord - Neuro Neuro: Alert and oriented X 3, No motor deficit, No sensory deficit, Normal speech - Psych Psych: Normal mood Results - Vitals Vitals: Vital Signs - 24 hr 01/24/22 01/24/22 01/24/22 08:33 09:07 10:15 Temperature 36.6 C Heart Rate 67 64 58 L Respiratory 17 18 16 Rate Blood Pressure 147/77 H 133/78 H 167/87 H O2 Saturation 100 99 100 Oxygen O2 Source Room air - EKG (time done) 08:27 Rate: Rate (enter#) (64) Rhythm: NSR [place]: Normal Intervals: Normal [place] QRS: Normal Ischemia: Normal ST segments. No: ST elevation c/w ischemia, ST depression Compare to prior EKG: Old EKG unavailable - Labs Labs: Laboratory Tests 01/24/22 01/24/22 01/24/22 09:06 09:06 09:06 WBC 8.0 RBC 4.33 Hgb 13.2 Hct 40.9 MCV 94.5 MCH 30.5 MCHC 32.3 RDW 13.2 Plt Count 164 MPV 10.5 Neut # (Auto) 6.3 Lymph # (Auto) 1.0 L [place] # (Auto) 0.5 Eos # (Auto) 0.1 Baso # (Auto) 0.1 Absolute Nucleated RBC 0.00 Nucleated RBC % 0.0 Sodium 140 Potassium 3.6 Chloride 109 Carbon Dioxide 25 Anion Gap 6.0 BUN 12 Creatinine 0.8 Estimated GFR (MDRD) 68 L Glucose 95 Calcium 9.6 Total Bilirubin 0.7 AST 23 ALT 17 Alkaline Phosphatase 69 Troponin I High Sens 3.9 B-Natriuretic Peptide Total Protein 6.3 L Albumin 3.9 Globulin 2.4 Albumin/Globulin Ratio 1.6 Lipase 45 01/24/22 09:06 WBC RBC Hgb Hct MCV MCH MCHC RDW Plt Count MPV Neut # (Auto) Lymph # (Auto) [place] # (Auto) Eos # (Auto) Baso # (Auto) Absolute Nucleated RBC Nucleated RBC % Sodium Potassium Chloride Carbon Dioxide Anion Gap BUN Creatinine Estimated GFR (MDRD) Glucose Calcium Total Bilirubin AST ALT Alkaline Phosphatase Troponin I High Sens B-Natriuretic Peptide 193 H Total Protein Albumin Globulin Albumin/Globulin Ratio Lipase - Rads (name of study) chest xray Radiology: Prelim report reviewed (no acute process), See rad report PD MEDICAL DECISION MAKING - ED course Complexity details: reviewed results, considered differential, d/w patient Departure - Departure Disposition: 01 Home, Self Care Clinical Impression: Chest pain in adult Condition: Stable Record reviewed to determine appropriate education?: Yes Instructions: ED Chest Pain Atypical Unkn Cause Follow-Up: Popeye Franco MD [Primary Care Provider] - Comments: Your EKG is normal without any signs of injury/heart attack. Your chest x-ray does not show any lung abnormalities. Your blood tests are good without any signs of heart failure or heart attack/heart muscle injury. Basic electrolytes are good. Its unclear the cause of your pain episode. Follow-up with your primary care if recurring episodes and you can try the nitroglycerin you have at home if you have recurring episodes. Possibilities could be heart related though again no signs of heart muscle injury at this time. Other considerations can be reflux or heartburn, esophageal spasm, gallbladder spasm, or other causes. These may or may not be recurrent. Regarding your COPD/shortness of breath easily, you may consider using your inhalers prescribed on a regular basis such as 2-3 times daily regularly and see if you have better breathing overall. Discharge Date/Time: 01/24/22 10:15
[2022-01-24 09:10] LABS: BASOPHILS # (AUTO) 0.1 10^3/uL (0.0-0.1); BASOPHILS % (AUTO) 0.6 %; EOSINOPHILS # (AUTO) 0.1 10^3/uL (0.0-0.7); EOSINOPHILS % (AUTO) 1.5 %; HCT - HEMATOCRIT 40.9 % (37.0-47.0); HGB - HEMOGLOBIN 13.2 g/dL (12.0-16.0); LYMPHOCYTES % (AUTO) 12.1 %; MEAN CORPUSCULAR HEMOGLOBIN 30.5 pg (27.0-31.0); MEAN CORPUSCULAR HGB CONC 32.3 g/dL (32.0-36.0); MEAN CORPUSCULAR VOLUME 94.5 fL (81.0-99.0); MEAN PLATELET VOLUME 10.5 fL (7.9-10.8); MONOCYTES # (AUTO) 0.5 10^3/uL (0.0-1.0); MONOCYTES % (AUTO) 5.7 %; NEUTROPHILS # (AUTO) 6.3 10^3/uL (1.5-6.6); NEUTROPHILS % (AUTO) 79.7 %; PLT - PLATELET COUNT 164 10^3/uL (130-450); RED BLOOD COUNT 4.33 10^6/uL (4.20-5.40); RED CELL DISTRIBUTION WIDTH 13.2 % (12.0-15.0)
--- NOTE | 2022-01-24 09:23 | XRAY Report ---
PROCEDURE: Chest 1 View X-Ray INDICATIONS: Chest Pain TECHNIQUE: One view of the chest was acquired. COMPARISON: 12/17/2020 FINDINGS: Surgical changes and devices: None. Lungs and pleura: No pleural effusions or pneumothorax. Lungs are clear. Mediastinum: Mediastinal contours appear normal. Heart size is normal. Calcification is seen of th e aortic arch. Bones and chest wall: No suspicious bony lesions. Age-appropriate degenerative changes are seen. Overlying soft tissues appear unremarkable. IMPRESSION: Portable chest within normal limits for age. Reviewed by: Jose Martin Camarillo MD on 01/24/2022 8:22 AM [facility] Approved by: Jose Martin Camarillo MD on 01/24/2022 8:22 AM [facility] Station ID: [id number]
--- OUTSIDE RECORDS SUMMARY | 2022-01-24 09:26 | EXTERNAL MEDICAL SUMMARY RPT | Continuity of Care Document ---
:1935 Author Organization [facility] Address [address] [place] [address] Phone Allergies No information. Encounters No information. Functional Status No information. Immunizations No information. Medications No information. Problems No information. Procedures No information. Results/Labs test date author facility value unit interpret ation Result panel 1 (unknown) (no (unknown) (unknown) (no value) (units (unk nown) date) unknown) (unknown) (no (unknown) (unknown) (). A few (units (unknown) date) scattered unknown) calcified granulomata are present. A few solid (unknown) (no (unknown) (unknown) [id number] (units (unkno wn) date) unknown) (unknown) (no (unknown) (unknown) 11/05/21 (units (unkno wn) date) unknown) (unknown) (no (unknown) (unknown) 1. Minimal (units (unk nown) date) reticular unknown) opacities are present primarily at the costophrenic angles (unknown) (no (unknown) (unknown) [address] (units (unknown) date) unknown) (unknown) (no (unknown) (unknown) 2. Moderate (units (un known) date) emphysema. unknown) (unknown) (no (unknown) (unknown) 3. A few (units (unkno wn) date) pulmonary nodules unknown) are present. Follow-up non-contrast chest CT is (unknown) (no (unknown) (unknown) 4. (units (unkno wn) date) Cholelithiasis. unknown) (unknown) (no (unknown) (unknown) Abdomen: (units (unkno wn) date) Cholelithiasis. unknown) (unknown) (no (unknown) (unknown) Accession (units (unkn own) date) Number: unknown) [id number] (unknown) (no (unknown) (unknown) Age/Sex: 86 / F (units (unknown) date) Date of Service: unknown) (unknown) (no (unknown) (unknown) [place], [place] (units ( unknown) date) [id number] unknown) (unknown) (no (unknown) (unknown) Approved by: (units (u nknown) date) tyson Schmidt) Thomas on 11/06/2021 at 13:19 (unknown) (no (unknown) (unknown) Bones and chest (units (unknown) date) wall: No unknown) suspicious bony lesions. No vertebral body (unknown) (no (unknown) (unknown) COMPARISON: (units (un known) date) None. unknown) (unknown) (no (unknown) (unknown) CT Scan Report (units (unknown) date) unknown) (unknown) (no (unknown) (unknown) : 1935 (units (unknown) date) Acct:[id number] unknown) (unknown) (no (unknown) (unknown) Dictated by: (units (u nknown) date) tyson Schmidt) Thomas on 11/06/2021 at 12:15 (unknown) (no (unknown) (unknown) FINDINGS: (units (unkn own) date) unknown) (unknown) (no (unknown) (unknown) IMPRESSION: (units (un known) date) unknown) (unknown) (no (unknown) (unknown) INDICATIONS: (units (u nknown) date) INTERSTITIAL unknown) PULMONARY DISEASE,UNSPEC (unknown) (no (unknown) (unknown) Image quality: (units (unknown) date) Excellent. unknown) (unknown) (no (unknown) (unknown) [facility] (units (unknown) date) unknown) (unknown) (no (unknown) (unknown) Loc: CT (units (unkno wn) date) unknown) (unknown) (no (unknown) (unknown) Lungs: Moderate (units (unknown) date) emphysema. unknown) Biapical pleural/parenchym al scarring present. (unknown) (no (unknown) (unknown) Mediastinum: (units (u nknown) date) Heart size is unknown) normal. No pericardial effusion. Multivessel (unknown) (no (unknown) (unknown) Minimal (units (unkno wn) date) unknown) (unknown) (no (unknown) (unknown) No (units (unkno wn) date) unknown) (unknown) (no (unknown) (unknown) Noncontrast 1.0 (units (unknown) date) and 5.0 mm thick unknown) contiguous axial sections from the pulmonary (unknown) (no (unknown) (unknown) Ordering (units (unkno wn) date) Provider: unknown) Jose Baez MD (unknown) (no (unknown) (unknown) PROCEDURE: CT (units ( unknown) date) CHEST HIGH unknown) RESOLUTION (unknown) (no (unknown) (unknown) Patient: (units (unkno wn) date) [place] unknown) MR#: [id number] (unknown) (no (unknown) (unknown) Pleura: No (units (unk nown) date) pleural effusions unknown) or pneumothorax. (unknown) (no (unknown) (unknown) Procedure: CT (units ( unknown) date) chest high unknown) resolution (unknown) (no (unknown) (unknown) Signed (units (unkno wn) date) unknown) (unknown) (no (unknown) (unknown) TECHNIQUE: (units (unk nown) date) unknown) (unknown) (no (unknown) (unknown) angles in the (units ( unknown) date) unknown) (unknown) (no (unknown) (unknown) apex to the (units (un known) date) unknown) (unknown) (no (unknown) (unknown) arteries are (units (u nknown) date) unknown) (unknown) (no (unknown) (unknown) artery (units (unkno wn) date) calcifications unknown) and/or stents. Thoracic aorta and central pulmonary (unknown) (no (unknown) (unknown) automated (units (unkn own) date) exposure control, unknown) adjustment of mA and/or kV according to patient (unknown) (no (unknown) (unknown) bilaterally. (units (u nknown) date) These are unknown) nonspecific and could represent senescent change and/or (unknown) (no (unknown) (unknown) compression (units (un known) date) unknown) (unknown) (no (unknown) (unknown) coronary (units (unkno wn) date) unknown) (unknown) (no (unknown) (unknown) fissure (units (unkno wn) date) unknown) (unknown) (no (unknown) (unknown) fractures. (units (unk nown) date) unknown) (unknown) (no (unknown) (unknown) honeycombing (units (u nknown) date) demonstrated. No unknown) definite or substantial traction bronchiectasis (unknown) (no (unknown) (unknown) however early or (units (unknown) date) minimal unknown) interstitial lung disease is difficult to exclude. (unknown) (no (unknown) (unknown) in 6-12 months (units (unknown) date) per Fleischner unknown) society guidelines. (unknown) (no (unknown) (unknown) lobe (). (units ( unknown) date) unknown) (unknown) (no (unknown) (unknown) lungs. 1.0 mm (units ( unknown) date) unknown) (unknown) (no (unknown) (unknown) nodular region (units (unknown) date) unknown) (unknown) (no (unknown) (unknown) nodules are (units (un known) date) present, for unknown) example a 3 mm nodule at the lateral aspect of the (unknown) (no (unknown) (unknown) normal in size. (units (unknown) date) Esophagus is unknown) normal in caliber. (unknown) (no (unknown) (unknown) of ground-glass (units (unknown) date) opacity is unknown) present at the anterior left lower lobe abutting the (unknown) (no (unknown) (unknown) or air (units (unkno wn) date) unknown) (unknown) (no (unknown) (unknown) posterior (units (unkn own) date) costophrenic unknown) angles, with 7 mm thick coronal and sagittal MIP (unknown) (no (unknown) (unknown) prone (units (unkno wn) date) end-inspiration unknown) position. For radiation dose reduction, the following (unknown) (no (unknown) (unknown) pulmonary (units (unkn own) date) unknown) (unknown) (no (unknown) (unknown) recommended (units (un known) date) unknown) (unknown) (no (unknown) (unknown) reformats. 1 mm (units (unknown) date) unknown) (unknown) (no (unknown) (unknown) reticular (units (unkn own) date) opacities present unknown) primarily at the costophrenic angles bilaterally. (unknown) (no (unknown) (unknown) right lower (units (un known) date) unknown) (unknown) (no (unknown) (unknown) scarring, (units (unkn own) date) unknown) (unknown) (no (unknown) (unknown) size. (units (unkno wn) date) unknown) (unknown) (no (unknown) (unknown) thick axial (units (un known) date) sections acquired unknown) from the denzel to the posterior costophrenic (unknown) (no (unknown) (unknown) thick dynamic (units ( unknown) date) expiratory images unknown) acquired through the upper, mid, and lower (unknown) (no (unknown) (unknown) trapping. No (units (u nknown) date) widespread unknown) ground-glass opacity or micronodularity. A 2.8 cm (unknown) (no (unknown) (unknown) was used: (units (unkn own) date) unknown) Social History No information. Vital Signs No information.
[2022-01-24 09:32] LABS: ALBUMIN 3.9 g/dL (3.2-5.5); ALBUMIN/GLOBULIN RATIO 1.6 (1.0-2.2); BILIRUBIN,TOTAL 0.7 mg/dL (0.2-1.0); CALCIUM 9.6 mg/dL (8.5-10.3); CREATININE 0.8 mg/dL (0.4-1.0); POTASSIUM 3.6 mmol/L (3.5-5.0); TOTAL PROTEIN 6.3 g/dL (6.7-8.2)
[2022-01-24 10:15] VITALS: BP 167/87
== END 2022-01-24 10:15 | disposition home or self-care (01) ==
LOC: EDUNIT# → ED 08:22
DX: R07.9 Chest pain, unspecified (principal); J44.9 Chronic obstructive pulmonary disease, unspecified; F17.200 Nicotine dependence, unspecified, uncomplicated
CPT/HCPCS: 36415; 80053; 83690; 83880; 84484; 85025; 99284

== ENCOUNTER 2022-04-09 09:19 | Outpatient (CLI) | payer MEDICARE ==
[2022-04-09 11:48] LABS: BASOPHILS # (AUTO) 0.1 10^3/uL (0.0-0.1); BASOPHILS % (AUTO) 1.6 %; EOSINOPHILS # (AUTO) 0.2 10^3/uL (0.0-0.7); EOSINOPHILS % (AUTO) 3.1 %; HCT - HEMATOCRIT 44.2 % (37.0-47.0); HGB - HEMOGLOBIN 14.1 g/dL (12.0-16.0); LYMPHOCYTES # (AUTO) 1.4 10^3/uL (1.5-3.5); LYMPHOCYTES % (AUTO) 24.7 %; MEAN CORPUSCULAR HEMOGLOBIN 30.1 pg (27.0-31.0); MEAN CORPUSCULAR HGB CONC 31.9 g/dL (32.0-36.0); MEAN CORPUSCULAR VOLUME 94.4 fL (81.0-99.0); MONOCYTES # (AUTO) 0.4 10^3/uL (0.0-1.0); MONOCYTES % (AUTO) 7.5 %; NEUTROPHILS # (AUTO) 3.6 10^3/uL (1.5-6.6); NEUTROPHILS % (AUTO) 62.8 %; PLT - PLATELET COUNT 179 10^3/uL (130-450); RED BLOOD COUNT 4.68 10^6/uL (4.20-5.40); RED CELL DISTRIBUTION WIDTH 13.2 % (12.0-15.0); WHITE BLOOD COUNT 5.7 x10^3/uL (4.8-10.8)
[2022-04-09 12:28] LABS: ALBUMIN 3.6 g/dL (3.2-5.5); ALBUMIN/GLOBULIN RATIO 1.3 (1.0-2.2); ALKALINE PHOSPHATASE 76 IU/L (42-121); ALT ALANINE AMINOTRANSFERASE 15 IU/L (10-60); AST ASPARTATE AMINOTRANSFERASE 24 IU/L (10-42); BILIRUBIN,TOTAL 0.7 mg/dL (0.2-1.0); BUN - BLOOD UREA NITROGEN 14 mg/dL (6-20); CARBON DIOXIDE - CO2 27 mmol/L (21-32); CHLORIDE 108 mmol/L (101-111); CHOL/HDL RATIO 3.4 (<4.4); CHOLESTEROL 139 mg/dL; CREATININE 0.7 mg/dL (0.4-1.0); GFR - MDRD 79 (>89); GLUCOSE 99 mg/dL (70-100); HDL CHOLESTEROL 41 mg/dL; LDL CHOLESTEROL,CALCULATED 58 mg/dL; LDL/HDL RATIO 1.4 (<4.4); POTASSIUM 3.6 mmol/L (3.5-5.0); SODIUM 144 mmol/L (135-145); TOTAL PROTEIN 6.4 g/dL (6.7-8.2); TRIGLYCERIDES 198 mg/dL; VLDL CHOLESTEROL 40 mg/dL
[2022-04-09 12:36] LABS: THYROID STIMULATING HORMONE 2.32 uIU/mL (0.34-5.60)
== END 2022-04-09 09:20 | disposition home or self-care (01) ==
LOC: LAB.N 09:19
PROVIDERS: ATTEND Family Medicine
DX: I10 Essential (primary) hypertension (principal); K29.00 Acute gastritis without bleeding; R20.8 Other disturbances of skin sensation; B35.1 Tinea unguium; I25.10 Atherosclerotic heart disease of native coronary artery without angina pectoris; E78.5 Hyperlipidemia, unspecified
CPT/HCPCS: 36415; 80053; 80061; 83721; 84443; 85025

== ENCOUNTER 2022-12-09 08:20 | Outpatient (CLI) | payer MEDICARE ==
[2022-12-09 11:54] LABS: BASOPHILS # (AUTO) 0.1 10^3/uL (0.0-0.1); BASOPHILS % (AUTO) 1.3 %; EOSINOPHILS # (AUTO) 0.3 10^3/uL (0.0-0.7); EOSINOPHILS % (AUTO) 3.9 %; HCT - HEMATOCRIT 45.6 % (37.0-47.0); HGB - HEMOGLOBIN 14.1 g/dL (12.0-16.0); LYMPHOCYTES # (AUTO) 1.7 10^3/uL (1.5-3.5); LYMPHOCYTES % (AUTO) 21.7 %; MEAN CORPUSCULAR HEMOGLOBIN 30.9 pg (27.0-31.0); MEAN CORPUSCULAR HGB CONC 30.9 g/dL (32.0-36.0); MEAN PLATELET VOLUME 11.5 fL (7.9-10.8); MONOCYTES # (AUTO) 0.5 10^3/uL (0.0-1.0); MONOCYTES % (AUTO) 6.9 %; NEUTROPHILS % (AUTO) 65.8 %; PLT - PLATELET COUNT 214 10^3/uL (130-450); RED BLOOD COUNT 4.56 10^6/uL (4.20-5.40); RED CELL DISTRIBUTION WIDTH 14.1 % (12.0-15.0); WHITE BLOOD COUNT 7.7 x10^3/uL (4.8-10.8)
[2022-12-09 12:07] LABS: ALBUMIN 4.3 g/dL (3.2-5.5); ALBUMIN/GLOBULIN RATIO 1.8 (1.0-2.2); ALKALINE PHOSPHATASE 72 IU/L (42-121); ALT ALANINE AMINOTRANSFERASE 19 IU/L (10-60); AST ASPARTATE AMINOTRANSFERASE 23 IU/L (10-42); BILIRUBIN,TOTAL 0.6 mg/dL (0.2-1.0); BUN - BLOOD UREA NITROGEN 25 mg/dL (6-20); CALCIUM 10.1 mg/dL (8.5-10.3); CARBON DIOXIDE - CO2 26 mmol/L (21-32); CHLORIDE 110 mmol/L (101-111); CHOLESTEROL 142 mg/dL; GFR - MDRD 52 (>89); GLUCOSE 137 mg/dL (74-104); POTASSIUM 3.9 mmol/L (3.5-4.5); SODIUM 141 mmol/L (135-145); TOTAL PROTEIN 6.7 g/dL (6.4-8.9); TRIGLYCERIDES 285 mg/dL (48-352); VLDL CHOLESTEROL 57 mg/dL
[2022-12-09 12:25] LABS: THYROID STIMULATING HORMONE 3.65 uIU/mL (0.34-5.60)
[2022-12-09 23:57] LABS: CHOL/HDL RATIO 3.3 (<4.4); HDL CHOLESTEROL 43 mg/dL; LDL CHOLESTEROL,CALCULATED 42 mg/dL
== END 2022-12-09 08:21 | disposition home or self-care (01) ==
LOC: LAB.N 08:20
PROVIDERS: ATTEND Family Medicine
DX: I10 Essential (primary) hypertension (principal); B35.1 Tinea unguium; K21.9 Gastro-esophageal reflux disease without esophagitis; I25.10 Atherosclerotic heart disease of native coronary artery without angina pectoris; E78.5 Hyperlipidemia, unspecified; Z95.5 Presence of coronary angioplasty implant and graft
CPT/HCPCS: 36415; 80053; 80061; 83721; 84443; 85025

== ENCOUNTER 2023-08-02 09:27 | Outpatient (CLI) | payer MEDICARE ==
[2023-08-02 12:05] LABS: HCT - HEMATOCRIT 48.1 % (37.0-47.0); HGB - HEMOGLOBIN 15.8 g/dL (12.0-16.0); MEAN CORPUSCULAR HEMOGLOBIN 31.2 pg (27.0-31.0); MEAN CORPUSCULAR HGB CONC 32.8 g/dL (32.0-36.0); MEAN CORPUSCULAR VOLUME 94.9 fL (81.0-99.0); RED BLOOD COUNT 5.07 10^6/uL (4.20-5.40); RED CELL DISTRIBUTION WIDTH 13.5 % (12.0-15.0); WHITE BLOOD COUNT 6.3 x10^3/uL (4.8-10.8)
[2023-08-02 12:25] LABS: ALBUMIN 4.2 g/dL (3.2-5.5); ALBUMIN/GLOBULIN RATIO 1.4 (1.0-2.2); BILIRUBIN,TOTAL 0.6 mg/dL (0.2-1.0); CALCIUM 10.7 mg/dL (8.5-10.3); POTASSIUM 3.9 mmol/L (3.5-4.5); TOTAL PROTEIN 7.1 g/dL (6.4-8.9)
== END 2023-08-02 09:28 | disposition home or self-care (01) ==
LOC: LAB.N 09:27
PROVIDERS: ATTEND Internal Medicine Cardiovascular Disease
DX: I25.118 Atherosclerotic heart disease of native coronary artery with other forms of angina pectoris (principal)
CPT/HCPCS: 36415; 80053; 85027